=== PATIENT | female | born 1970 | race Caucasian/White ===

== ENCOUNTER 2016-08-31 08:31 | Day surgery (SDC) | payer BC ==
[~2016-08-31 08:31] MED LIST: RINGERS SOLUTION,LACTATED 1,000 ML IV PRN
--- OUTSIDE RECORDS SUMMARY | 2016-08-31 08:35 | XMS REPORT | Continuity of Care Document ---
:1970 Author Organization [email or web address] [place] [address] Care Team Providers Name Role Phone Unavailable Primary Care Provider Unavailable Source Comments This disclosure is being made pursuant to the [employer] program and maynot contain all information available regarding this patient.[email or web address] Active Allergies and Adverse Reactions Not on File Current Medications Be aware that medications may not be up to date as of this document. Alwaysverify current medications with the patient. Not on file Active Problems Not on file Social History Tobacco Use Types Packs/Day Years Used Date Never Assessed Plan of Care Health Maintenance Due Date Last Done Comments Retired-Pertussis Vaccine Adult 01/26/1988 Retired-Tetanus Vaccine Adult 01/26/1988 Pap Smear 1990 Mammogram 2009 Retired-INFLUENZA VACCINE 2015 Results from Last 3 Months Not on file
[2016-08-31] MEDS ORDERED: BUPIVACAINE HCL/EPINEPHRINE 50 ML VIAL IJ ONE ×2 (10:35)
[2016-08-31] MEDS ORDERED: RINGERS SOLUTION,LACTATED 1,000 ML IV ONE (11:15)
[2016-08-31] MEDS ORDERED: MORPHINE SULFATE 4 MG/ML SYRG IV PRN (13:13)
[2016-08-31] MEDS ORDERED: traMADol HCL 50 MG TABLET PO PRN (13:16)
[2016-08-31] MEDS ORDERED: traMADol HCL 50 MG TABLET ONE (14:10)
[2016-08-31] MEDS ORDERED: ONDANSETRON HCL/PF 2 MG/ML VIAL IV PRN (14:20)
[2016-08-31 15:23] VITALS: BP 127/87
== END 2016-08-31 08:32 | disposition home or self-care (01) ==
LOC: AMB 08:31
PROVIDERS: ATTEND Specialist
PROC: 0FT44ZZ Resection of Gallbladder, Percutaneous Endoscopic Approach (ICD-10-PCS; principal; 2016-08-31 09:15)
DX: K80.10 Calculus of gallbladder with chronic cholecystitis without obstruction (principal); I25.10 Atherosclerotic heart disease of native coronary artery without angina pectoris; I10 Essential (primary) hypertension; E03.9 Hypothyroidism, unspecified; Z68.39 Body mass index [BMI] 39.0-39.9, adult